=== PATIENT | male | born 2000 | race Caucasian/White ===

== ENCOUNTER 2019-03-12 20:03 | Emergency (ER) | payer OTHER ==
[~2019-03-12] VITALS: Ht 177.8 cm; Wt 81.8 kg
[2019-03-12 22:20] LABS: CHLAMYDIA DNA AMPLIFICATION NEGATIVE (NEGATIVE); GC DNA AMPLIFICATION NEGATIVE (NEGATIVE)
[2019-03-12] MEDS ORDERED: cefTRIAXone SOD 250 MG VIAL (J0696) IM ONE (22:30)
[2019-03-12] MEDS ORDERED: AZITHROMYCIN 250 MG TAB PO ONE (22:30)
[2019-03-12] MEDS ORDERED: LIDOCAINE 1% SDV 5 ML VIAL DILUENT ONE (22:30)
[2019-03-12 22:37] VITALS: BP 121/76
== END 2019-03-12 23:03 | disposition home or self-care (01) ==
LOC: M ED 20:03
DX: Z20.2 Contact with and (suspected) exposure to infections with a predominantly sexual mode of transmission (principal)
CPT/HCPCS: 81001; 87661; 96372; 99283; J0696